=== PATIENT | female | born 1995 | race African-American/Black ===

== ENCOUNTER 2017-02-19 11:40 | Inpatient (IN) ==
[2017-02-19] MEDS ORDERED: BUTORPHANOL 2 MG/ML VIAL IV PRN (12:14)
[2017-02-19] MEDS ORDERED: ONDANSETRON 4 MG/2 ML VIAL IV PRN ×2 (12:14→12:48)
[2017-02-19 12:27] LABS: Basophils % 0.1 % (0.0-0.8); Eosinophils % 0.1 % (0.00-10.9); Hematocrit 28.3 VOL% (35.7-47.0); Hemoglobin 9.5 GM/DL (12.0-16.0); Immature Granulocytes % 0.5 %; Immature Granulocytes Absolute 0.04 #; Lymphocytes # 1.3 10*3/uL (1.4-4.0); Lymphocytes % 17.5 % (21.3-54.2); Mean Corpuscular HGB Conc 33.6 GM/DL (32-36); Mean Corpuscular Hemoglobin 25 PG (27-34); Mean Corpuscular Volume 74.1 FL (87-102); Mean Platelet Volume 11.3 FL (9.6-12.0); Monocytes # 0.7 10*3/uL (0.11-0.8); Monocytes % 8.8 % (1.7-12.7); NRBC # 0.03 10*3/uL; Neutrophils # 5.5 10*3/uL (1.4-7.4); Platelet Count 197 T/CUMM (130-400); Red Blood Count 3.82 MC/CUMM (3.8-5.5); Red Cell Distribution Width 14.8 % (9.3-17.3); White Blood Count 7.6 T/CUMM (4-12)
[2017-02-19] MEDS ORDERED: OXYTOCIN/LR 20 UNIT/1,000 ML BAG IV SCH (12:30)
[2017-02-19] MEDS ORDERED: ACETAMINOPHEN 325 MG TABLET PO PRN (12:48)
[2017-02-19] MEDS ORDERED: MEASLES/MUMPS/RUBELLA VACCINE 0.5 ML VIAL SUBCUT ONE (12:48)
[2017-02-19] MEDS ORDERED: oxyCODONE/ACETAMINOPHEN 5-325 MG TABLET PO PRN ×2 (12:48)
[2017-02-19] MEDS ORDERED: LANOLIN 50% CREAM 0.3 OZ TUBE TOP PRN (12:48)
[2017-02-19] MEDS ORDERED: BENZOCAINE 20%/MENTHOL 0.5% SPRAY 56 GM CAN TOP PRN (12:48)
[2017-02-19] MEDS ORDERED: HYDROCORTISONE 2.5% RECTAL CREAM 30 GM TUBE TOP PRN (12:48)
[2017-02-19] MEDS ORDERED: DIPH/TET/ACEL PERT BOOSTER VACCINE 0.5 ML VIAL IM ONE (12:48)
[2017-02-19] MEDS ORDERED: OXYTOCIN/LR 20 UNIT/1,000 ML BAG IV ONE (12:48)
[2017-02-19] MEDS ORDERED: RHO(D) IMMUNE GLOBULIN 300 MCG SYRINGE IM ONE (12:48)
[2017-02-19] MEDS ORDERED: WITCH HAZEL PADS 100/JAR TOP PRN (12:48)
[2017-02-19] MEDS ORDERED: BISACODYL 10 MG SUPP RECTAL PRN (12:48)
[2017-02-19 12:59] LABS: Albumin 2.5 G/DL (3.4-5.0); Bilirubin,Total 0.9 MG/DL (0.2-1.0); Calcium 8.8 MG/DL (8.5-10.1); Osmolality,Calculated 267.8 MOS/KG (273-304); Potassium 3.3 MMOL/L (3.5-5.1); Total Protein 7.3 G/DL (6.4-8.3); Uric Acid 3.5 MG/DL (2.6-6.0)
[2017-02-19] MEDS ORDERED: CITRIC ACID/SODIUM CITRATE 30 ML UDCUP PO ONE (13:06)
[2017-02-19] MEDS ORDERED: PROMETHAZINE 25 MG/1 ML VIAL IM ONE (13:06)
[2017-02-19] MEDS ORDERED: diphenhydrAMINE 50 MG/1 ML VIAL IV PRN (13:06)
[2017-02-19] MEDS ORDERED: ONDANSETRON 4 MG/2 ML VIAL IV ONE (13:06)
[2017-02-19] MEDS ORDERED: FAMOTIDINE 20 MG/2 ML VIAL IV ONE (13:06)
[2017-02-19] MEDS ORDERED: hydrOXYzine HCL 25 MG/1 ML VIAL IM PRN (13:06)
[2017-02-19] MEDS ORDERED: ePHEDrine 50 MG/ML AMP IV PRN (13:06)
[2017-02-19] MEDS ORDERED: LACTATED RINGERS 1,000 ML IV ONE (13:06)
[2017-02-19] MEDS ORDERED: SUCCINYLCHOLINE 200 MG/10 ML VIAL ONE ×2 (13:27→14:18)
[2017-02-19] MEDS ORDERED: ONDANSETRON 4 MG/2 ML VIAL ONE (13:27)
[2017-02-19] MEDS ORDERED: PROPOFOL 200 MG/20 ML VIAL IV ONE ×2 (13:27→14:17)
[2017-02-19] MEDS ORDERED: PHENYLEPHRINE 1 MG/10 ML SYRINGE IV ONE (13:27)
[2017-02-19] MEDS ORDERED: fentaNYL 2 MCG/ROPIV 0.2% EPID 150 ML EPIDURAL SCH (13:30)
[2017-02-19] MEDS ORDERED: LACTATED RINGERS 1,000 ML IV SCH (13:30)
[2017-02-19] MEDS ORDERED: fentaNYL 100 MCG/2 ML VIAL ONE (14:16)
[2017-02-19] MEDS ORDERED: MORPHINE 10 MG/10 ML VIAL ONE (14:17)
[2017-02-19] MEDS ORDERED: HYDROmorphone PCA 30 MG/30 ML SYRINGE IV SCH (14:30)
[2017-02-19] MEDS: ceFAZolin 1,000 MG in SYRINGE 1 EACH IV SCH (20:07)
[2017-02-19] MEDS: DOCUSATE SODIUM 100 MG CAPSULE PO SCH (21:09)
[2017-02-19] MEDS: diphenhydrAMINE 50 MG/1 ML VIAL IV PRN (21:38)
[2017-02-20] MEDS: LACTATED RINGERS 1,000 ML IV SCH ×2 (02:12→04:27)
[2017-02-20] MEDS ORDERED: SIMETHICONE CHEW 80 MG TABLET PO PRN (03:06)
[2017-02-20] MEDS: diphenhydrAMINE 50 MG/1 ML VIAL IV PRN ×2 (03:23→06:26)
[2017-02-20] MEDS: ceFAZolin 1,000 MG in SYRINGE 1 EACH IV SCH ×2 (03:29→11:12)
[2017-02-20 05:59] LABS: Basophils % 0.1 % (0.0-0.8); Eosinophils % 0.2 % (0.00-10.9); Hematocrit 25.8 VOL% (35.7-47.0); Hemoglobin 8.5 GM/DL (12.0-16.0); Immature Granulocytes % 0.6 %; Immature Granulocytes Absolute 0.07 #; Lymphocytes # 0.9 10*3/uL (1.4-4.0); Mean Corpuscular HGB Conc 32.9 GM/DL (32-36); Mean Corpuscular Hemoglobin 25 PG (27-34); Mean Corpuscular Volume 74.4 FL (87-102); Mean Platelet Volume 11.8 FL (9.6-12.0); Monocytes # 0.9 10*3/uL (0.11-0.8); Monocytes % 7.3 % (1.7-12.7); Neutrophils # 9.9 10*3/uL (1.4-7.4); Neutrophils % 83.8 % (38.7-73.9); Platelet Count 181 T/CUMM (130-400); Red Blood Count 3.47 MC/CUMM (3.8-5.5); Red Cell Distribution Width 14.7 % (9.3-17.3); White Blood Count 11.8 T/CUMM (4-12)
[2017-02-20] MEDS: DOCUSATE SODIUM 100 MG CAPSULE PO SCH ×2 (09:28→21:43)
[2017-02-20] MEDS: FERROUS SULFATE 325 MG TABLET PO SCH ×2 (09:28→21:43)
[2017-02-20] MEDS: IBUPROFEN 800 MG TABLET PO PRN ×2 (10:27→15:38)
[2017-02-20] MEDS: MAGNESIUM HYDROXIDE SUSP 30 ML UDCUP PO PRN (12:23)
[2017-02-21] MEDS: MAGNESIUM HYDROXIDE SUSP 30 ML UDCUP PO PRN (06:14)
[2017-02-21] MEDS: MULTIVITAMIN (PRENATAL) TABLET PO SCH ×2 (08:47→21:29)
[2017-02-21] MEDS: FERROUS SULFATE 325 MG TABLET PO SCH ×3 (08:48→21:27)
[2017-02-21] MEDS: DOCUSATE SODIUM 100 MG CAPSULE PO SCH ×3 (08:48→21:28)
[2017-02-21] MEDS: IBUPROFEN 800 MG TABLET PO PRN (21:10)
[2017-02-21] MEDS: LACTATED RINGERS 1,000 ML IV SCH ×3 (21:29→21:34)
[2017-02-22] MEDS: LACTATED RINGERS 1,000 ML IV SCH (05:05)
[2017-02-22] MEDS: FERROUS SULFATE 325 MG TABLET PO SCH (08:12)
[2017-02-22] MEDS: MULTIVITAMIN (PRENATAL) TABLET PO SCH (08:12)
[2017-02-22] MEDS: DOCUSATE SODIUM 100 MG CAPSULE PO SCH (08:13)
[2017-02-22] MEDS: IBUPROFEN 800 MG TABLET PO PRN (08:13)
[2017-02-22 09:14] VITALS: BP 116/64
[2017-02-22] MEDS ORDERED: INFLUENZA VIRUS VACCINE 0.5 ML SYRINGE IM ONE (10:44)
== END 2017-02-22 11:30 | disposition home or self-care (01) | DRG 540 ==
LOC: N.LDOUT 11:40 → N.LD 11:41 → N.OB 17:08
PROVIDERS: ADMIT Obstetrics & Gynecology; ATTEND Specialist
PROC: LDCSECT (ICD-10-PCS; 2017-02-19 17:45)